=== PATIENT | male | born 1985 ===

== ENCOUNTER 2018-04-26 21:25 | Emergency (ER) | payer SELFPAY ==
--- NOTE | 2018-04-26 21:44 | EDPHY ---
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 He states he a stands on his feet all ought times working doses of lifting. All the same does not recall any specific injury. There is no slip near fall. The pain did begin a week ago after a bit of a [place]. He had been drinking heavily for about 2 days that time Prior instrumentation of the back: No IV drug abuse: None Bowel or bladder continence: None Fever: None Loss of sensation in the saddle distribution: Normal P this area is not really better or worse at all with movement Q achiness R bilateral sides in the posterior x-ray line laterally on the back S mild to moderate T continuous for week worse at times. Does not keep him awake One of his coworkers had a very bad kidney infection and thus he is concerned about this ROS: Constitutional - No antecedent fever, n, or v. Neck: no pain or decreased ROM GI - no nausea vomiting or diarrhea. There is no abdominal pain or distention. - no dysuria or frequency. No hematuria or flank pain. Musculoskeletal - no joint or muscle pain. Neurological - no headache, numbness, tingling, or paresthesias. No focal motor weakness.. Source: Patient Exam Limitations: No limitations - Personal History Current Tetanus Diphtheria and Acellular Pertussis (TDAP): Yes - Medical/Surgical History Hx Asthma: No Hx Chronic Respiratory Disease: No Hx Diabetes: No Hx Cardiac Disease: No Hx Renal Disease: No Hx Cirrhosis: No Hx Alcoholism: No Hx HIV/AIDS: No Hx Splenectomy or Spleen Trauma: No Other PMH: denies - Family History Significant Family History: No pertinent family hx - Social History Smoking Status: Former smoker Alcohol Use: Occasionally Drug Use: None - Physical Exam Exam: Gen: Well-developed. Well-nourished. No odor of alcohol. Nontoxic. Afebrile. Thin. Back: No muscle spasm or spinous process tenderness. Range of motion: Full with extension rotation and side bending. Abdomen: Bowel sounds present. No palpable aortic masses. Femoral pulses equal. Constitutional: Initial Vital Signs Temperature (C) 37 C 04/26/18 21:34 Heart Rate 59 L 04/26/18 21:34 Respiratory Rate 15 04/26/18 21:34 Blood Pressure 151/98 H 04/26/18 21:34 O2 Sat (%) 97 04/26/18 21:34 O2 Delivery Mode Room Air Allergies/Adverse Reactions: No Known Allergies Allergy (Unverified 04/26/18 21:34) Home Medications: Medication Instructions Recorded NK [No Known Home Meds] 04/26/18 Medical Decision Making - Data Points Point of Care Test Results: Urine Dip Collection Date 04/26/18 Collection Time 21:58 Specific [place] (1.002-1.030) 1.020 PH (5.0-7.5) 5.0 Leukocytes (Negative) Negative Nitrites (Negative) Negative Protein (Negative) Negative Glucose (Negative) Negative Ketones (Negative) Trace Urobilnogen (0.2-1.0 EU) 0.2 Bilirubin (Negative) Negative Blood (Negative) Negative Departure - Departure Disposition: Home, Routine, Self-Care Clinical Impression: Back strain Qualifiers: Encounter type: initial encounter Qualified Code(s): S39.012A - Strain of muscle, fascia and tendon of lower back, initial encounter Condition: Good Instructions: Low Back Strain (ED), Lower Back Exercises (ED) Additional Instructions: Use good body mechanics when lifting. Do not aggravate the area by a new exercise program or prolonged walking Tylenol and Advil works well together in combination: 1300 mg Extended Release Tylenol and 800 mg Advil every 8 hours as needed for the pain. Referrals: Luis Romano DO [Doctor of Osteopathy] - As per Instructions
[2018-04-26 23:09] VITALS: BP 141/92
== END 2018-04-26 22:40 | disposition home or self-care (01) ==
LOC: CED 21:25
DX: S39.012A Strain of muscle, fascia and tendon of lower back, initial encounter (principal); Z87.891 Personal history of nicotine dependence